=== PATIENT | male | born 1955 | race Caucasian/White ===

== ENCOUNTER → 2020-09-09 09:42 | Outpatient (CLI) | payer MEDICARE, OTHER, SELFPAY ==
[2020-09-09 11:39] LABS: Prostate Specific Antigen 1.38 ng/mL (0.10-4.00)
== END ==
PROVIDERS: PCP Family Medicine; Referring Provider Specialist; Visit Provider Specialist
DX: N40.1 Benign prostatic hyperplasia with lower urinary tract symptoms (principal); N13.8 Other obstructive and reflux uropathy; R30.9 Painful micturition, unspecified; R30.0 Dysuria; Z87.448 Personal history of other diseases of urinary system
CPT/HCPCS: 36415; 51798; 81002; 84153; 99215